=== PATIENT | female | born 2000 | race Caucasian/White ===

== ENCOUNTER 2021-03-13 18:00 | Emergency (ER) | payer BC, SELFPAY ==
--- OUTSIDE RECORDS SUMMARY | 2021-03-13 18:02 | XMS REPORT | Continuity of Care Document ---
:2000 Author Organization [facility] t Address [address] [place] [address] Care Team Providers Name Role Phone Visit, Nurse Attending Clinician Unavailable Kristina JASON S Attending Clinician Didier Pacheco DO Attending Clinician Jonn JASON Attending Clinician Doctor Unassigned, Name Attending Clinician Unavailable Pranav Green Attending Clinician Problems This patient has no known problems. Allergies, Adverse Reactions, Alerts This patient has no known allergies or adverse reactions. Medications This patient has no known medications. Procedures This patient has no known procedures. Encounters Start End Encounter Admission Attending Care Care Encounter Source Date/Time Date/Time Type Type Clinicians Facility Department ID 2021-03-06 2021-03-06 Nurse Visit, [facility] [id number] 09:32:20 10:01:41 Visit Kirstyalexis EQUITIES ANALYST [id number] Nurse [facility] [id number] MATERNAL [id number] & CHILD [address] [place] [address] 2021-01-08 2021-01-09 Emergency AMY Acevedo [id number] 22:33:00 04:11:00 Guy Tejeda [id number] [place] [id number] Ruby [id number] 2020-12-26 2020-12-26 Patient Junior [facility] [id number] 00:00:00 00:00:00 Outreach [facility] [id number] [facility] [id number] [place] [id number] 2020-12-18 2020-12-18 Emergency [facility] [id number] 12:55:00 14:26:00 Cristi Nguyenton [id number] [place] [id number] Ruby [id number] 2020-12-18 2020-12-18 Orders Doctor ROBERTO [id number] 00:00:00 00:00:00 Only Unassigned, JOSE DANIEL [id number] [place] [facility] [id number] [id number] 2020-12-12 2020-12-12 [facility] [id number] 13:32:03 14:34:17 Visit Elvie Rock EQUITIES ANALYST [id number] [facility] [id number] MATERNAL [id number] & CHILD 107 [facility] 2020-12-12 2020-12-12 [facility] [id number] 00:00:00 00:00:00 (Out) Elvie Rock EQUITIES ANALYST [id number] [facility] [id number] MATERNAL [id number] & CHILD 107 [facility] Results This patient has no known results.
--- NOTE | 2021-03-13 19:03 | RAD REPORT ---
EXAM DESCRIPTION: Page Mcguire (2 Views)03/13/2021 6:58 pm CLINICAL HISTORY: Cough COMPARISON: None FINDINGS: The lungs appear clear of acute infiltrate. The heart is normal size IMPRESSION: No acute abnormalities displayed
[2021-03-13] MEDS ORDERED: IBUPROFEN 200 MG TAB PO ONE (19:36)
--- NOTE | 2021-03-13 19:57 | EDPHYS ---
Physician Documentation [facility] Name: Theresa Salgado Age: 21 yrs Sex: Female : 2000 Arrival Date: 03/13/2021 Time: 18:05 Bed 20 Private MD: ED Physician Guido Perez HPI: 03/13 19:35 This 21 yrs old Female presents to ER via Ambulatory with complaints of kb Congestion, Fever, Breathing Difficulty. 19:35 The patient or guardian reports cough, that is intermittent, described as moderate, kb with no sputum, flu symptoms, low-grade fever, myalgias. Onset: The symptoms/episode began/occurred 1 week(s) ago. Severity of symptoms: At their worst the symptoms were moderate, in the emergency department the symptoms are unchanged. Modifying factors: The symptoms are alleviated by nothing, the symptoms are aggravated by nothing. Associated signs and symptoms: Pertinent positives: fever, rhinorrhea, vomiting. The patient has not experienced similar symptoms in the past. The patient has not recently seen a physician. Pt reports cough, congestion, post-tussive cough, fever for one week. States daughter is sick as well and diagnosed with URI. 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 - Social history:: Smoking status: Patient reports the use of cigarette tobacco products, smokes one pack cigarettes per day. ROS: 19:33 Cardiovascular: Negative for chest pain, palpitations, and edema. kb 19:33 Constitutional: Positive for chills, fatigue, fever, malaise. 19:33 ENT: Positive for rhinorrhea, sinus congestion. 19:33 Respiratory: Positive for cough, Negative for dyspnea on exertion, hemoptysis, orthopnea, pleurisy, shortness of breath, sputum production, wheezing. 19:33 All other systems are negative. Exam: 19:33 Constitutional: This is a well developed, well nourished patient who is awake, alert, kb and in no acute distress. Head/Face: Normocephalic, atraumatic. ENT: Moist Mucous membranes Cardiovascular: Regular rate and rhythm with a normal S1 and S2. No gallops, murmurs, or rubs. No pulse deficits. Respiratory: Respirations even and unlabored. No increased work of breathing, no retractions or nasal flaring. Abdomen/GI: Soft, non-tender. No distention Skin: Warm, dry with normal turgor. Normal color. MS/ Extremity: Pulses equal, no cyanosis. Neurovascular intact. Full, normal range of motion. Neuro: Awake and alert, GCS 15, oriented to person, place, time, and situation. Moves all extremities. Normal gait. Psych: Awake, alert, with orientation to person, place and time. Behavior, mood, and affect are within normal limits. Vital Signs: 18:30 BP 133 / 76; Pulse 119; Resp 20; Temp 101.3(O); Pulse Ox 97% on R/A; Weight 81.65 kg; ph Height 4 ft. 11 in. (149.86 cm); 20:30 BP 122 / 77; Pulse 102; Resp 16; Temp 99.3; Pulse Ox 97% on R/A; jm8 18:30 Body Mass Index 36.36 (81.65 kg, 149.86 cm) ph MDM: 18:36 Patient medically screened. kb 19:33 Data reviewed: vital signs, nurses notes. Data interpreted: Pulse oximetry: on room air kb is 97 %. Interpretation: normal. Counseling: I had a detailed discussion with the patient and/or guardian regarding: the historical points, exam findings, and any diagnostic results supporting the discharge/admit diagnosis, lab results, radiology results, the need for outpatient follow up, a family practitioner, to return to the emergency department if symptoms worsen or persist or if there are any questions or concerns that arise at home. 19:51 ED course: Will prescribe antibiotics for acute bronchitis due to pt smoking status.. kb 03/13 18:36 Order name: Flu; Complete Time: 19:51 kb 03/13 18:36 Order name: Chest Pa And Lat (2 Views) XRAY; Complete Time: 19:04 kb Administered Medications: 19:20 Drug: Ibuprofen 600 mg Route: PO; jm8 20:28 Follow up: Response: No adverse reaction jm8 20:27 Drug: Zithromax (azithromycin) 500 mg Route: PO; jm8 20:28 Follow up: Response: No adverse reaction jm8 20:27 Drug: predniSONE 40 mg Route: PO; 8 20:28 Follow up: Response: No adverse reaction jm8 Disposition: 03/14 07:00 Co-signature as Attending Physician, Guido Perez MD. rn Disposition: 03/13/21 19:57 Discharged to Home. Impression: Acute bronchitis. - Condition is Stable. - Discharge Instructions: Acute Bronchitis, [id number]. - Prescriptions for Prednisone 20 mg Oral Tablet - take 1 tablet by ORAL route once daily for 5 days; 5 tablet. Zithromax 500 mg Oral Tablet - take 1 tablet by ORAL route once daily for 5 days; 5 tablet. - Medication Reconciliation Form, Thank You Letter, Antibiotic Education, Prescription Opioid Use form. - Follow up: Emergency Department; When: As needed; Reason: Worsening of condition. Follow up: Private Physician; When: 2 - 3 days; Reason: Recheck today's complaints, Continuance of care, Re-evaluation by your physician. Signatures: Dispatcher [employer] EDOK Azalia Nieves, ICE HOUSE SUPERVISOR-C ICE HOUSE SUPERVISOR-Guido Andino MD MD rn Hall, Patricia, RN RN ph Malcaba, Joseph, RN RN jm8 Corrections: (The following items were deleted from the chart) 03/13 19:36 19:35 Pt reports cough, congestion, post-tussive cough, fever for one week. States kb daughter is sick as well. . kb 20:31 19:57 03/13/2021 19:57 Discharged to Home. Impression: Acute bronchitis. Condition is jm8 Stable. Forms are Medication Reconciliation Form, Thank You Letter, Antibiotic Education, Prescription Opioid Use. Follow up: Emergency Department; When: As needed; Reason: Worsening of condition. Follow up: Private Physician; When: 2 - 3 days; Reason: Recheck today's complaints, Continuance of care, Re-evaluation by your physician. kb
--- NOTE | 2021-03-13 19:57 | ER ---
Nurse's Notes [facility] Name: Theresa Salgado Age: 21 yrs Sex: Female : 2000 Arrival Date: 03/13/2021 Time: 18:05 Bed 20 Private MD: Diagnosis: Acute bronchitis Presentation: 03/13 18:30 Chief complaint: Patient states: Cough, congestion, fever, nausea, vomiting after ph coughing episodes x 1 week, COVID test negative at work today. Coronavirus screen: Client denies travel out of the [place] in the last 14 days. The client reports previous COVID testing was negative. Ebola Screen: No symptoms or risks identified at this time. Initial Sepsis Screen: Does the patient meet any 2 criteria? No. Patient's initial sepsis screen is negative. Does the patient have a suspected source of infection? No. Patient's initial sepsis screen is negative. Risk Assessment: Do you want to hurt yourself or someone else? Patient reports no desire to harm self or others. Onset of symptoms was March 13, 2021. 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 - Social history:: Smoking status: Patient reports the use of cigarette tobacco products, smokes one pack cigarettes per day. Screenin:18 Abuse screen: Denies threats or abuse. Denies injuries from another. Nutritional jm8 screening: No deficits noted. Tuberculosis screening: No symptoms or risk factors identified. Fall Risk None identified. Assessment: 19:11 General: Appears in no apparent distress. comfortable, Behavior is calm, cooperative, jd3 appropriate for age. Pain: Complains of pain in head Quality of pain is described as aching. Neuro: Level of Consciousness is awake, alert, obeys commands, Oriented to person, place, time, situation. Cardiovascular: Denies chest pain, Capillary refill < 3 seconds Patient's skin is warm and dry. Respiratory: Reports shortness of breath cough that is persistent Airway is patent Respiratory effort is even, unlabored, Respiratory pattern is regular, symmetrical. GI: No signs and/or symptoms were reported involving the gastrointestinal system. : No signs and/or symptoms were reported regarding the genitourinary system. EENT: Reports nasal congestion. Derm: Skin is intact, Skin is dry, Skin is normal, Skin temperature is warm. Musculoskeletal: Circulation, motion, and sensation intact. Range of motion: intact in all extremities. Vital Signs: 18:30 BP 133 / 76; Pulse 119; Resp 20; Temp 101.3(O); Pulse Ox 97% on R/A; Weight 81.65 kg; ph Height 4 ft. 11 in. (149.86 cm); 20:30 BP 122 / 77; Pulse 102; Resp 16; Temp 99.3; Pulse Ox 97% on R/A; jm8 18:30 Body Mass Index 36.36 (81.65 kg, 149.86 cm) ph ED Course: 18:05 Patient arrived in ED. mr 18:06 Azalia Nieves FNP-C is [facility]. kb 18:06 Guido Perez MD is Attending Physician. kb 18:32 Triage completed. ph 18:32 Arm band placed on. ph 18:58 Chest Pa And Lat (2 Views) XRAY In Process Unspecified. EDMS 19:07 Flu Sent. jd3 19:18 Patient has correct armband on for positive identification. Bed in low position. Call jm8 light in reach. Side rails up X2. Adult w/ patient. 20:30 No provider procedures requiring assistance completed. Patient did not have IV access jm8 during this emergency room visit. Administered Medications: 19:20 Drug: Ibuprofen 600 mg Route: PO; jm8 20:28 Follow up: Response: No adverse reaction jm8 20:27 Drug: Zithromax (azithromycin) 500 mg Route: PO; jm8 20:28 Follow up: Response: No adverse reaction jm8 20:27 Drug: predniSONE 40 mg Route: PO; jm8 20:28 Follow up: Response: No adverse reaction jm8 Outcome: 19:57 Discharge ordered by . kb 20:30 Discharged to home ambulatory, with family. jm8 20:30 Condition: good 20:30 Discharge instructions given to patient, Instructed on discharge instructions, follow up and referral plans. medication usage, Demonstrated understanding of instructions, follow-up care, medications. 20:31 Patient left the ED. jm8 Signatures: Dispatcher [employer] EDMS Azalia Nieves, ENOCHC ENGINE ROOM HELPER-Kerry Machado Patricia RN RN Jacek Salas RN RN jJerry Trevizo RN RN jm8
[2021-03-13 20:36] VITALS: O2SAT 97
[2021-03-13 20:38] VITALS: BP 122/77; TEMP 99.3
[2021-03-13] MEDS ORDERED: predniSONE 20 MG TAB ONE (20:43)
[2021-03-13] MEDS ORDERED: AZITHROMYCIN 250 MG TAB ONE (20:43)
== END 2021-03-13 20:31 | disposition home or self-care (01) ==
LOC: ER 18:00
DX: J20.9 Acute bronchitis, unspecified (principal); F17.210 Nicotine dependence, cigarettes, uncomplicated
CPT/HCPCS: 71046; 87804; 99283; J7512